=== PATIENT | female | born 1960 | race Caucasian/White ===

== ENCOUNTER 2017-02-24 13:31 | Observation (INO) ==
[2017-02-24] MEDS ORDERED: Ondansetron 4 MG/2 ML VIAL IVP PRN (14:38)
[2017-02-24] MEDS ORDERED: Naloxone 0.4 MG/ML INJ IVP PRN (14:38)
[2017-02-24 15:17] LABS: Hematocrit 39.8 % (35.3-44.9); Hemoglobin 13.3 g/dL (11.5-15.4); Immature Granulocytes % 0.1 % (0-4); Lymphocytes % 37.6 %; Mean Corpuscular HGB Conc 33.4 g/dL (31.6-35.5); Mean Corpuscular Hemoglobin 31.1 pg (28.0-33.3); Mean Corpuscular Volume 93.2 fL (83.0-100.0); Mean Platelet Volume 9.2 fL (9.4-12.4); Platelet Count 285 K/mcL (140-400); Red Blood Count 4.27 M/mcL (3.82-4.97); Red Cell Distribution Width 12.4 % (11.5-14.5); Segmented Neutrophils % 40.2 %
[2017-02-24 15:18] LABS: Basophils # 0.1 K/mcL (0.0-0.2); Basophils % 0.9 %; Eosinophils # 0.6 K/mcL (0.0-0.6); Eosinophils % 7.1 %; Lymphocytes # 3.1 K/mcL (0.6-4.6); Monocytes # 1.2 K/mcL (0.0-1.3); Monocytes % 14.1 %; Neutrophils # 3.3 K/mcL (1.6-8.9)
--- NOTE | 2017-02-24 15:18 | General Surg History&Physical ---
Date of Encounter: 02/24/17 Time of Encounter: 15:14 Assessment and Plan (1) Intractable diarrhea Current Visit: Yes Status: Acute The assessment and plan as outlined above was discussed with the patient and/or family members who expressed understanding and agreement. All questions were answered. start ivf hydration antiemetics prn check stool panel may need repeat colonoscopy with biopsies, concern for collagenous colitis (2) Fatigue Current Visit: Yes Status: Acute The assessment and plan as outlined above was discussed with the patient and/or family members who expressed understanding and agreement. All questions were answered. Qualifiers: Fatigue type: unspecified Qualified Code(s): R53.83 - Other fatigue (3) Weight loss Current Visit: Yes Status: Acute The assessment and plan as outlined above was discussed with the patient and/or family members who expressed understanding and agreement. All questions were answered. (4) HLD (hyperlipidemia) Current Visit: Yes Status: Acute The assessment and plan as outlined above was discussed with the patient and/or family members who expressed understanding and agreement. All questions were answered. ok for home meds Qualifiers: Hyperlipidemia type: unspecified Qualified Code(s): E78.5 - Hyperlipidemia , unspecified (5) HTN (hypertension) Current Visit: Yes Status: Acute The assessment and plan as outlined above was discussed with the patient and/or family members who expressed understanding and agreement. All questions were answered. ok for home meds, normotensive currently, will monitor Qualifiers: Hypertension type: essential hypertension Qualified Code(s): I10 - Essential (primary) hypertension (6) Nausea Current Visit: Yes Status: Acute The assessment and plan as outlined above was discussed with the patient and/or family members who expressed understanding and agreement. All questions were answered. prn antiemetics History of Present Illness Chief complaint: diarrhea, fatigue HPI: Ms. Hernandez is a 56 year old female who presents with intractable diarrhea for the last 3 weeks. It started suddenly and she has never previously had any episodes like this. She states she has diarrhea "all day every day" since it started. Today she has had 10 liquid bowel movements. Over the last 3 weeks her stools are always watery without any substance. She had a positive fobt by her PCP. She complains of feeling "woozy" but no shortness of breath, chest pains or palpitations or dizziness. She is very fatigued and wants to sleep all the time. She has nausea when she is having a lot of diarrhea but no emesis. She denies any obvious rectal bleeding or melena. She will have midabdominal/ diffuse crampy pain at times related to the diarrhea. She feels like her entire stomach is bloated. She has lost 6 lbs in three weeks. She started on Etodolac several months ago for hip pain, she has tried to not take it but feels she needs to for the hip pain. She denies a [facility] Crohn's or UC. Her father was diagnosed with colon cancer and same year at 74 yrs age Past Med Surg Social Fam HX - Past Medical History Source: patient Medical history: cancer (basal cell skin cancer), hyperlipidemia, hypertension, other (diverticulosis, hx bladder/urethral prolapse) Psychiatric history: no psych history - Past Surgical History Surgical History: appendectomy, MAME/BSO, other (skin cancers excised, colonoscopies, bladder/urethral ssling) - Social History Smoking Status: Former smoker Alcohol use: occasionally Drug use: none Occupational status: employed Current living situation: With Family Activity Level: Independent ambulation - Family History Father Adopted: No Living Status: Age at : 75 Cause of : colon cancer Hx Family Cardiac Disorders: No Hx Family Respiratory Disorders: No Hx Family Cancer: Yes Hx Family Genitourinary Disorders: No Hx Family Endocrine Disorder: Yes Hx Family Musculoskeletal Disorders: No Hx Family Neuromuscular Disorders: No Hx Family Neurologic Disorders: No Hx Family HEENT Disorders: No Hx Family Autoimmune Disorders: No Hx Family Reproductive Disorders: No Hx Family Psychosocial Disorders: No Hx Family Medical Disorders: No Medications and Allergies Etodolac 400 mg PO BID 02/24/17 [History] Allergies cephalexin [From Keflex] Adverse Reaction (Verified 07/09/16 08:41) Hives Sulfa (Sulfonamide Antibiotics) Adverse Reaction (Verified 07/09/16 08:41) Hives Review of Systems All systems PM: reviewed and no additional remarkable complaints except as stated All systems PM: A 10-system review of systems was performed and is negative for pertinent findings except as documented above in the HPI. General Surgery Exam Initial Vital Signs Temp Pulse Resp BP Pulse Ox 98.2 F 59 16 125/81 93 02/24/17 14:36 02/24/17 14:36 02/24/17 14:36 02/24/17 14:36 02/24/17 14:36 - General physical appearance well nourished, no distress, no pain, other (appears unwell) - Eyes PERRL, normal ocular movement - ENT normal mucosa, atraumatic, normocephalic - Neck trachea midline - Respiratory normal expansion, clear to auscultation - Cardiovascular Cardiovascular exam: Present: RRR - Abdomen Abdomen general surgery: Present: bowel sounds present, soft, tender (mild discomfort). Absent: tympanic, distended, guarding, rebound - Integumentary Integumentary general surgery: Present: warm and dry, no abnormal pigmentation - Neurologic Present: CN 2-12 grossly intact - Musculoskeletal Present: normal gait, normal posture - Psychiatric Psychiatric general surgery: Present: A&Ox3, speech is normal Results - Labs stool studies, cbc, bmp, mg, phos, lfts' - pending
[2017-02-24 15:32] LABS: Alanine Aminotransferase 70 Units/L (0-55); Albumin 3.4 g/dL (3.5-5.0); Alkaline Phosphatase 61 Units/L (38-126); Aspartate Amino Transferase 45 Units/L (5-34); BUN/Creatinine Ratio 19 (6-26); Bilirubin,Direct 0.2 mg/dL (0.0-0.5); Bilirubin,Indirect 0.2 mg/dL (0.0-1.2); Bilirubin,Total 0.4 mg/dL (0.2-1.2); Blood Urea Nitrogen 19 mg/dL (7-20); Calcium 9.4 mg/dL (8.6-10.8); Carbon Dioxide 23 mEq/L (19-29); Chloride 106 mEq/L (98-109); Globulin 3.5 g/dL (2.4-3.5); Glucose 102 mg/dL (70-99); Magnesium 2.2 mg/dL (1.6-2.6); Osmolality,Calculated 292 (280-300); Phosphorous 4.1 mg/dL (2.3-4.7); Potassium 4.2 mEq/L (3.5-4.5); Sodium 140 mEq/L (136-145); Total Protein 6.9 g/dL (6.0-8.3); eGFR For African Americans > 60 (> 60); eGFR For Non-African Americans 56 (> 60)
[2017-02-24] MEDS: Pantoprazole 40 MG VIAL IVP SCH (15:43)
[2017-02-24 17:04] LABS: Adenovirus F 40/41 PCR Not detected (Not detect); Astrovirus PCR Not detected (Not detect); C.difficile Toxin A/B by PCR Not detected (Not detect); Campylobacter by PCR Not detected (Not detect); Cryptosporidium by PCR Not detected (Not detect); Cyclospora cayetanensis PCR Not detected (Not detect); E. coli O157 by PCR Not detected (Not detect); Entamoeba histolytica PCR Not detected (Not detect); Enteroaggregative E.coli(EAEC) Not detected (Not detect); Enteropathogenic E.coli(EPEC) Not detected (Not detect); Enterotoxigenic E.coli (ETEC) Not detected (Not detect); Giardia lamblia PCR Not detected (Not detect); Norovirus GI/GII PCR Not detected (Not detect); Plesiomonas shigelloides PCR Not detected (Not detect); Rotavirus A PCR Not detected (Not detect); Salmonella PCR Not detected (Not detect); Sapovirus PCR Not detected (Not detect); Shig/EnteroinvasiveE coli EIEC Not detected (Not detect); Shigalike tox-prod E coli STEC Not detected (Not detect); Vibrio PCR Not detected (Not detect); Vibrio cholerae PCR Not detected (Not detect); Yersinia enterocolitica PCR Not detected (Not detect)
[2017-02-24] MEDS: 0.9 % Sodium Chloride 1,000 ML IVC SCH ×2 (23:42)
[2017-02-25] MEDS ORDERED: 0.9 % Sodium Chloride 1,000 ML IVC SCH (07:25)
[2017-02-25] MEDS ORDERED: Metoprolol XL (24 HR) Succ 25 MG TAB.ER.24H PO SCH (09:00)
[2017-02-25] MEDS ORDERED: Polyethylene Glycol 3350 255 GM POWDER PO ONE (09:00)
[2017-02-25] MEDS: Pantoprazole 40 MG VIAL IVP SCH (09:09)
--- NOTE | 2017-02-25 12:12 | Discharge Summary ---
<Filemon Newellvicky Enriquez - Last Filed: 02/25/17 12:09> Date of Encounter: 02/25/17 Time of Encounter: 12:09 - Discharge Diagnosis (1) Intractable diarrhea Priority: Primary Status: Acute (2) Fatigue Priority: Secondary Status: Acute Qualifiers: Fatigue type: unspecified Qualified Code(s): R53.83 - Other fatigue (3) Weight loss Priority: Secondary Status: Acute (4) HLD (hyperlipidemia) Priority: Secondary Status: Acute Qualifiers: Hyperlipidemia type: unspecified Qualified Code(s): E78.5 - Hyperlipidemia , unspecified (5) HTN (hypertension) Priority: Secondary Status: Acute Qualifiers: Hypertension type: essential hypertension Qualified Code(s): I10 - Essential (primary) hypertension (6) Nausea Priority: Secondary Status: Acute - Discharge Medications Prescriptions: Cholestyramine 4 gm PO BIDAC #30 powd.pack Home Medications: Aspirin 81 mg PO DAILY 02/25/17 [History] Cetirizine HCl [Zyrtec] 10 mg PO DAILY 02/25/17 [History] Cholestyramine 4 gm PO BIDAC #30 powd.pack 02/25/17 [Rx] Cimetidine 200 mg PO DAILY 02/25/17 [History] Estradiol 0.25 - 0.5 mg PO DAILY 02/25/17 [History] Glucosamn/Condroitn/C/Mn/[place] [[facility] Glucosamine Chondroitin Tb] 1 tab PO DAILY 02/25/17 [History] Inulin/Chromium Picolinate [Fiber Gummies] 1 tab PO DAILY 02/25/17 [History] Metoprolol XL (24 HR) Succ [Toprol Xl] 25 mg PO DAILY 02/25/17 [History] Multivitamin [One Daily Essential] 1 tab PO DAILY 02/25/17 [History] Oxybutynin Chloride [Ditropan Xl] 10 mg PO DAILY 02/25/17 [History] Simvastatin [Zocor] 20 mg PO HS 02/25/17 [History] Allergies/Adverse Reactions: Allergies cephalexin [From Keflex] Adverse Reaction (Verified 07/09/16 08:41) Hives Sulfa (Sulfonamide Antibiotics) Adverse Reaction (Verified 07/09/16 08:41) Hives General Surgery Exam Initial Vital Signs Temp Pulse Resp BP Pulse Ox 98.2 F 59 16 125/81 93 02/24/17 14:36 02/24/17 14:36 02/24/17 14:36 02/24/17 14:36 02/24/17 14:36 - General physical appearance well nourished, no distress - Eyes PERRL, normal ocular movement - ENT normal mucosa, normocephalic - Neck trachea midline - Respiratory normal expansion, normal respiratory effort - Cardiovascular Cardiovascular exam: Present: RRR - Abdomen Abdomen general surgery: Present: bowel sounds present, soft, non tender - Integumentary Integumentary general surgery: Present: warm and dry, no abnormal pigmentation - Neurologic Present: CN 2-12 grossly intact - Musculoskeletal Present: normal gait, normal posture - Psychiatric Psychiatric general surgery: Present: A&Ox3, speech is normal, tearful Date of admission: 02/24/17 13:59 Primary care physician: Sirena Cuellar Discharging clinician: Tiarra Newell Anticipated date of discharge: 02/25/17 - Patient Status Disposition: Home, Self-Care Condition: Good Functional capacity at discharge: independent ambulation Overall status at discharge: patient is not back to baseline - Discharge Instructions Follow Up With: Sirena Cuellar MD [Primary Care Provider] - - Diet and Activity Activity: increase activity as tolerated Diet: advance to your usual diet - Hospital Course Hospital course: Ms. Hernandez is a 56 year old female was admitted with intractable diarrhea and nausea for three weeks. Stool panel was negative except for fecal lactoferrin. She prepped for colonoscopy with random colonic biopsies which was done on 02.25.17. She was then discharged home in stable condition. - Time Spent with Patient Total time spent providing and/or coordinating discharge services: Labs on day of discharge: Labs from last 24 hours 02/24/17 02/24/17 02/24/17 15:39 15:08 15:08 WBC 8.2 RBC 4.27 Hgb 13.3 Hct 39.8 MCV 93.2 MCH 31.1 MCHC 33.4 RDW 12.4 Plt Count 285 MPV 9.2 L Immature Gran % 0.1 Seg Neutrophils % 40.2 Lymphocytes % 37.6 Monocytes % 14.1 Eosinophils % 7.1 Basophils % 0.9 Neutrophils # 3.3 Lymphocytes # 3.1 Monocytes # 1.2 Eosinophils # 0.6 Basophils # 0.1 Sodium 140 Potassium 4.2 Chloride 106 Carbon Dioxide 23 BUN 19 Creatinine 1.02 Est GFR ( Amer) > 60 Est GFR (Non-Af Amer) 56 L BUN/Creatinine Ratio 19 Glucose 102 H Calculated Osmolality 292 Calcium 9.4 Phosphorus 4.1 Magnesium 2.2 Total Bilirubin 0.4 Direct Bilirubin 0.2 Indirect Bilirubin 0.2 AST 45 H ALT 70 H Alkaline Phosphatase 61 Serum Total Protein 6.9 Albumin 3.4 L Globulin 3.5 Albumin/Globulin Ratio 1.0 L Stl C. cayetanensis PCR Not detected Stool Rotavirus A PCR Not detected Stl Adenov F 40/41 PCR Not detected Stool Astrovirus (PCR) Not detected Stool Campylobacter PCR Not detected Stl C. diff Tox A/B PCR Not detected Stool Cryptosporidium PCR Not detected Stl Sh Tox Pr E STEC PCR Not detected Stool E coli O157 PCR Not detected Stl Enterotoxigenic E PCR Not detected Stool EPEC (PCR) Not detected Stool EAEC (PCR) Not detected Stl E. histolytica PCR Not detected Stool Giardia Lamblia PCR Not detected Stool Salmonella PCR Not detected Stool Sapovirus (PCR) Not detected Stl P. shigelloides PCR Not detected Stl Shigella/EIEC PCR Not detected St Y.enterocolitica PCR Not detected Stool Vibrio (PCR) Not detected Stl Vibrio cholerae PCR Not detected Stl Norovirus GI/GII PCR Not detected Stl GI Panel (PCR) Com See below <Bonnie Potter - Last Filed: 02/25/17 12:31> Date of Encounter: 02/25/17 General Surgery Exam Initial Vital Signs Temp Pulse Resp BP Pulse Ox 98.2 F 59 16 125/81 93 02/24/17 14:36 02/24/17 14:36 02/24/17 14:36 02/24/17 14:36 02/24/17 14:36 Date of admission: 02/24/17 13:59 Primary care physician: Sirena Cuellar - Hospital Course Hospital course: Ms. Hernandez is a 56 year old female - Time Spent with Patient Total time spent providing and/or coordinating discharge services: Labs on day of discharge: Labs from last 24 hours 02/24/17 02/24/17 02/24/17 15:39 15:08 15:08 WBC 8.2 RBC 4.27 Hgb 13.3 Hct 39.8 MCV 93.2 MCH 31.1 MCHC 33.4 RDW 12.4 Plt Count 285 MPV 9.2 L Immature Gran % 0.1 Seg Neutrophils % 40.2 Lymphocytes % 37.6 Monocytes % 14.1 Eosinophils % 7.1 Basophils % 0.9 Neutrophils # 3.3 Lymphocytes # 3.1 Monocytes # 1.2 Eosinophils # 0.6 Basophils # 0.1 Sodium 140 Potassium 4.2 Chloride 106 Carbon Dioxide 23 BUN 19 Creatinine 1.02 Est GFR ( Amer) > 60 Est GFR (Non-Af Amer) 56 L BUN/Creatinine Ratio 19 Glucose 102 H Calculated Osmolality 292 Calcium 9.4 Phosphorus 4.1 Magnesium 2.2 Total Bilirubin 0.4 Direct Bilirubin 0.2 Indirect Bilirubin 0.2 AST 45 H ALT 70 H Alkaline Phosphatase 61 Serum Total Protein 6.9 Albumin 3.4 L Globulin 3.5 Albumin/Globulin Ratio 1.0 L Stl C. cayetanensis PCR Not detected Stool Rotavirus A PCR Not detected Stl Adenov F 40/41 PCR Not detected Stool Astrovirus (PCR) Not detected Stool Campylobacter PCR Not detected Stl C. diff Tox A/B PCR Not detected Stool Cryptosporidium PCR Not detected Stl Sh Tox Pr E STEC PCR Not detected Stool E coli O157 PCR Not detected Stl Enterotoxigenic E PCR Not detected Stool EPEC (PCR) Not detected Stool EAEC (PCR) Not detected Stl E. histolytica PCR Not detected Stool Giardia Lamblia PCR Not detected Stool Salmonella PCR Not detected Stool Sapovirus (PCR) Not detected Stl P. shigelloides PCR Not detected Stl Shigella/EIEC PCR Not detected St Y.enterocolitica PCR Not detected Stool Vibrio (PCR) Not detected Stl Vibrio cholerae PCR Not detected Stl Norovirus GI/GII PCR Not detected Stl GI Panel (PCR) Com See below - Attending Attestation I examined this patient and my medical decision-making was reviewed with the HELP DESK CONSULTANT/PA/Advanced Practice Nurse/Resident Physician. I agree with the documented findings, disposition and treatment plan as described except to the extent set forth below.
--- NOTE | 2017-02-25 14:16 | Anesthesia Evaluation PreOp ---
Date of Encounter: 02/25/17 Time of Encounter: 14:13 - Past History Planned Operation: Colonoscopy re: intractable diarrhea x 3 wks Cardiac History: HTN (maintained on Metoprolol), Hyperlipidemia (maintained on a Statin) Pulmonary History: Former smoker [employer] History: Denies Any Significant HX Other Medical History: Other (Basal Cell skin Ca,) Anesthesia History: No Prior Anesthetic Complications, Past Anesthesia (Appy, MAME/BSO, skin Ca excision, Colonoscopies, Bladder/urethral sling), Problems ( PONV) Alcohol Use: occasionally Drug use: none Medications and Allergies Aspirin 81 mg PO DAILY 02/25/17 [History] Cetirizine HCl [Zyrtec] 10 mg PO DAILY 02/25/17 [History] Cholestyramine 4 gm PO BIDAC #30 powd.pack 02/25/17 [Rx] Cimetidine 200 mg PO DAILY 02/25/17 [History] Estradiol 0.25 - 0.5 mg PO DAILY 02/25/17 [History] Glucosamn/Condroitn/C/Mn/[place] [[facility] Glucosamine Chondroitin Tb] 1 tab PO DAILY 02/25/17 [History] Inulin/Chromium Picolinate [Fiber Gummies] 1 tab PO DAILY 02/25/17 [History] Metoprolol XL (24 HR) Succ [Toprol Xl] 25 mg PO DAILY 02/25/17 [History] Multivitamin [One Daily Essential] 1 tab PO DAILY 02/25/17 [History] Oxybutynin Chloride [Ditropan Xl] 10 mg PO DAILY 02/25/17 [History] Simvastatin [Zocor] 20 mg PO HS 02/25/17 [History] Allergies cephalexin [From Keflex] Adverse Reaction (Verified 07/09/16 08:41) Hives Sulfa (Sulfonamide Antibiotics) Adverse Reaction (Verified 07/09/16 08:41) Hives - Meds/Allergy Pre-op Review Medications Reviewed: Yes Allergies Reviewed: Yes Beta Blockers on Current Med List: Yes (Metoprolol) If Beta Blockers taken, Date/Time (Last Dose taken): 02/25/2017 @ 0907 Anesthesia Results - Labs 02/24/17 15:08 02/24/17 15:08 Laboratory Results - Imaging EKG: image reviewed Anesthesia Exam Vital Signs Temp Pulse Resp BP Pulse Ox 02/25/17 11:10 98.3 F 65 20 95 02/25/17 07:20 98.0 F 62 14 125/79 95 02/25/17 03:46 98.3 F 65 16 100/61 96 02/24/17 19:07 97.5 F L 62 16 127/84 96 02/24/17 14:36 98.2 F 59 16 125/81 93 Intake and Output 02/24/17 02/25/17 02/25/17 23:59 07:59 15:59 Intake Total 120 / 120 120 / 120 Balance 120 / 120 120 / 120 Intake: Oral 120 / 120 120 / 120 Other: Meal Dinner Breakfast Stool Size Small Moderate Stool Consistency loose loose liquid Stool Color Brown Brown # Voids 1 1 1 # Bowel Movements 1 Weight 70.715 kg Patient Weight 02/25/17 23:59 Weight 70.715 kg Height: 5'3" Weight: 155# bmi = 28 NPO (# of Hours): [place] Pain Scale Used: Numeric (1 - 10) - HEENT Pupil (Motor): Pupils equal, EOMI Mallampati: II Teeth: Normal Oral Opening: Greater than 3 - [employer] LOC: Oriented [employer] Motor: Normal RUE, Normal LUE, Normal RLE, Normal LLE, Normal Face [employer] Sensory: Normal: RUE, LUE, RLE, LLE, Face - Cardiac Rhythm: Regular Murmur: None JVD: No - Pulmonary Breath Sounds: bilateral Clear Respiratory Effort: Symmetrical Anesthesia Assess/Plan ASA Score: 2 (Diarrhea, HTN, Chol) Modified Mackenzie Scale for Level of Consciousness: Cooperative, oriented, and tranquil Anesthetic Plan: MAC Monitoring Plan: Standard Monitors Recovery Plan: Other Anes Supervising Prov Stmt: Pt seen/evaluated, R&B Discussed, questions answered and consent obtained. Glenn Dominguez MD
[2017-02-25] MEDS ORDERED: *HR* Propofol 500 MG/50 ML BOTTLE IVC ONE (17:24)
[2017-02-26 11:28] VITALS: BP 125/79
== END 2017-02-25 17:25 | disposition home or self-care (01) ==
LOC: 3ANU
PROVIDERS: ADMIT Surgery; ATTEND Surgery
PROC: ENDOCBX (2017-02-25 14:00)